=== PATIENT | female | born 1945 | race Caucasian/White ===

== ENCOUNTER 2021-08-30 09:28 | Emergency (ER) | payer OTHER, MEDICARE ==
[~2021-08-30] VITALS: Ht 154.9 cm; Wt 75.3 kg
== END 2021-08-30 10:59 | disposition home or self-care (01) ==
LOC: ER 09:28
DX: S42.301D Unspecified fracture of shaft of humerus, right arm, subsequent encounter for fracture with routine healing (principal); Z88.2 Allergy status to sulfonamides; W01.0XXD Fall on same level from slipping, tripping and stumbling without subsequent striking against object, subsequent encounter
CPT/HCPCS: 99282